=== PATIENT | female | born 2000 | race American Indian/Alaskan Native ===

== ENCOUNTER 2020-07-07 18:14 | Emergency (ER) | payer SELFPAY ==
--- NOTE | 2020-07-07 20:57 | RAD REPORT ---
EXAM DESCRIPTION: RAD - Chest Single View - 07/07/2020 8:10 pm CLINICAL HISTORY: COUGH Chest pain. COMPARISON: No comparisons FINDINGS: Portable technique limits examination quality. The lungs are grossly clear. The heart is normal in size. No displaced fractures. IMPRESSION: No acute intrathoracic process suspected.
--- NOTE | 2020-07-07 21:03 | ER ---
Nurse's Notes [facility] Name: Raegan Fagan Age: 19 yrs Sex: Female : 2000 Arrival Date: 07/07/2020 Time: 18:16 Bed 6 Private MD: Diagnosis: Acute pharyngitis;Acute upper respiratory infection, unspecified Presentation: 07/07 18:19 Chief complaint: Patient states: "sometimes it feels like my heart drops a lot and it ss freaks me out. I don't know if it's my anxiety or what. I get chest pains and it feels like something is in my throat. It's been going on about a year. I'm also sick right now. My nose is stopped up, I'm congested and I keep coughing. I went to [facility] 3-4 months ago and they didn't take me serious so I came here.". Coronavirus screen: Client denies travel out of the [place] in the last 14 days. Ebola Screen: Patient denies exposure to infectious person. Patient denies travel to an Ebola-affected area in the 21 days before illness onset. Initial Sepsis Screen: Does the patient meet any 2 criteria? No. Patient's initial sepsis screen is negative. Does the patient have a suspected source of infection? No. Patient's initial sepsis screen is negative. Risk Assessment: Do you want to hurt yourself or someone else? Patient reports no desire to harm self or others. Onset of symptoms was 2019. 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 - Social history:: Smoking status: Patient reports the use of cigarette tobacco products, smokes one pack cigarettes per day. Screenin:29 Abuse screen: Denies threats or abuse. Nutritional screening: No deficits noted. ll2 Tuberculosis screening: No symptoms or risk factors identified. Fall Risk None identified. Assessment: 19:27 General: Appears in no apparent distress. Behavior is calm, cooperative, appropriate ll2 for age. Pain: Complains of pain in sore throat. Neuro: Level of Consciousness is awake, alert, obeys commands, Oriented to person, place, time, situation. Cardiovascular: Capillary refill < 3 seconds Patient's skin is warm and dry. Respiratory: Airway is patent Respiratory effort is even, unlabored, Respiratory pattern is regular, symmetrical, GI: No signs and/or symptoms were reported involving the gastrointestinal system. : No signs and/or symptoms were reported regarding the genitourinary system. Derm: Skin is intact, is healthy with good turgor, Skin is dry, Skin is pink, warm \\T\\ dry. Skin temperature is warm. Musculoskeletal: Circulation, motion, and sensation intact. Range of motion: intact in all extremities. 19:30 Reassessment: ERP to bedside. ll2 19:30 EENT: Throat. ll2 20:40 Reassessment: Patient and/or family updated on plan of care and expected duration. Pain ll2 level reassessed. Patient is alert, oriented x 3, equal unlabored respirations, skin warm/dry/pink. Vital Signs: 18:19 BP 134 / 89; Pulse 95; Resp 15; Temp 98.4(TE); Pulse Ox 99% on R/A; Weight 56.7 kg; Height 5 ft. 4 in. (162.56 cm); Pain 5/10; 19:31 BP 132 / 101; Pulse 92; Resp 21; Temp 97.9; Pulse Ox 100% ; ll2 20:40 BP 131 / 87; Pulse 107; Resp 16; Pulse Ox 100% on R/A; ll2 18:19 Body Mass Index 21.46 (56.70 kg, 162.56 cm) ED Course: 18:16 Patient arrived in ED. as 18:21 Triage completed. 18:21 Arm band placed on right wrist. 18:49 Michael Gan PA is PHCP. [facility] 18:49 Krishna Alba MD is Attending Physician. [facility] 19:27 Eulalia Moreland RN is Primary Nurse. ll2 19:29 Patient has correct armband on for positive identification. Placed in gown. Bed in low ll2 position. Call light in reach. Side rails up X 1. metal numerical control programmer on. Pulse ox on. NIBP on. 19:30 EKG done, by ED staff. ll2 19:43 COVID-19 Sent. ll2 19:43 Strep Sent. ll2 19:43 Flu Sent. ll2 20:07 Chest Single View XRAY In Process Unspecified. EDMS 21:20 No provider procedures requiring assistance completed. Patient did not have IV access ll2 during this emergency room visit. Administered Medications: 21:19 Drug: Decadron 10 mg Route: IM; Site: right deltoid; ll2 21:19 Follow up: Response: No adverse reaction ll2 Outcome: 21:02 Discharge ordered by . teresita 21:20 Discharged to home ambulatory. ll2 21:20 Condition: stable 21:20 Discharge instructions given to patient, Instructed on discharge instructions, follow up and referral plans. medication usage, Demonstrated understanding of instructions, follow-up care, medications, Prescriptions given X 1. 21:20 Patient left the ED. ll2 Addendum: 07/10/2020 17:42 Addendum: COVID-19 Result: Negative result given to RN to notify pt. Attempted to s v contact pt regarding negative COVID-19 swab results. Unable to leave voice mail due to the number provided was either not a working number, the voice mail has not been set up, or the voice mailbox is full.. 07/12/2020 16:38 Addendum: COVID-19 Result: Negative result given to RN to notify pt. Notified pt of i w negative COVID 19 swab results. Pt advised that even with a negative test result they should remain in isolation until symptom free for 3 days without medication. Pt also advised to return to the ED for worsening symptoms. Signatures: Dispatcher [employer] EDMS Haritha Duffy, RN Michael Bustillo PA PA jmm Martinez, Amelia as Williams, Irene, RN RN iw Smirch, Shelby, RN RN ss Linscombe, Lacie, RN RN ll2
--- NOTE | 2020-07-07 21:03 | EDPHYS ---
Physician Documentation [facility] Name: Raegan Fagan Age: 19 yrs Sex: Female : 2000 Arrival Date: 07/07/2020 Time: 18:16 Bed 6 Private MD: ED Physician Krishna Alba HPI: 07/07 19:22 This 19 yrs old Female presents to ER via Ambulatory with complaints of jmm Runny Nose, Sore Throat, Headache, Chest Pain. 19:22 The patient or guardian reports cough. Onset: The symptoms/episode began/occurred jmm gradually. Modifying factors: The symptoms are alleviated by nothing, the symptoms are aggravated by nothing. The patient has experienced similar episodes in the past. Patient complains of sore throat, cough. 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 - Social history:: Smoking status: Patient reports the use of cigarette tobacco products, smokes one pack cigarettes per day. ROS: 19:22 Constitutional: Negative for fever, chills, and weight loss. jmm 19:22 ENT: Positive for sore throat. 19:22 Cardiovascular: Positive for chest pain, with cough. 19:22 Cardiovascular: Positive for palpitations. 19:22 Neuro: Positive for headache. 19:22 All other systems are negative. Exam: 19:22 Constitutional: This is a well developed, well nourished patient who is awake, alert, jmm and in no acute distress. Head/Face: atraumatic. Eyes: EOMI, no conjunctival erythema appreciated 19:22 Neck: Trachea midline, Supple Chest/axilla: Normal chest wall appearance and motion. Cardiovascular: Regular rate and rhythm. No edema appreciated Respiratory: Normal respirations, no respiratory distress appreciated Abdomen/GI: Non distended, soft Back: Normal ROM Skin: General appearance color normal MS/ Extremity: Moves all extremities, no obvious deformities appreciated, no edema noted to the lower extremities Neuro: Awake and alert, normal gait Psych: Behavior is normal, Mood is normal, Patient is cooperative and pleasant 19:22 ENT: Posterior pharynx: Tonsils: bilaterally enlarged, with erythema, erythema, that is moderate. Vital Signs: 18:19 BP 134 / 89; Pulse 95; Resp 15; Temp 98.4(TE); Pulse Ox 99% on R/A; Weight 56.7 kg; ss Height 5 ft. 4 in. (162.56 cm); Pain 5/10; 19:31 BP 132 / 101; Pulse 92; Resp 21; Temp 97.9; Pulse Ox 100% ; ll2 20:40 BP 131 / 87; Pulse 107; Resp 16; Pulse Ox 100% on R/A; ll2 18:19 Body Mass Index 21.46 (56.70 kg, 162.56 cm) ss MDM: 19:22 Patient medically screened. [facility] 20:32 Data reviewed: vital signs, nurses notes. Counseling: I had a detailed discussion with [facility] the patient and/or guardian regarding: the historical points, exam findings, and any diagnostic results supporting the discharge/admit diagnosis. 21:01 Data reviewed: lab test result(s), radiologic studies, plain films. Counseling: I had a [facility] detailed discussion with the patient and/or guardian regarding: lab results, the need for outpatient follow up, to return to the emergency department if symptoms worsen or persist or if there are any questions or concerns that arise at home. ED course: Patient is alert and non toxic in appearance in the ED. Patient is advised to follow up with pcp and otherwise given strict return precautions. Patient understood and agrees with the plan of care. . 07/07 19:29 Order name: Flu [facility] 07/07 19:29 Order name: Strep [facility] 07/07 19:29 Order name: Chest Single View XRAY; Complete Time: 21:01 [facility] 07/07 19:29 Order name: COVID-19 [facility] Administered Medications: 21:19 Drug: Decadron 10 mg Route: IM; Site: right deltoid; ll2 21:19 Follow up: Response: No adverse reaction ll2 Disposition: 07/08 13:27 Co-signature as Attending Physician, Krishna Alba MD I agree with the assessment and kdr plan of care. Disposition: 07/07/20 21:02 Discharged to Home. Impression: Acute pharyngitis, Acute upper respiratory infection, unspecified. - Condition is Stable. - Discharge Instructions: Pharyngitis, Upper Respiratory Infection, Adult, COVID-19. - Prescriptions for Zithromax Z- Stewart 250 mg Oral Tablet - take 1 tablet by ORAL route as directed for 5 days Day 1 - take two (2) tablets one time. Day 2, 3, 4 , 5 take one (1) tablet once daily.; 6 tablet. - Medication Reconciliation Form, Thank You Letter, Antibiotic Education, Prescription Opioid Use form. - Follow up: Private Physician; When: 2 - 3 days; Reason: Recheck today's complaints, Continuance of care, Re-evaluation by your physician. Signatures: Dispatcher [employer] EDMS Krishna Alba MD MD kdr Mickail, Joel, PA PA jmm Smirch, Shelby, RN RN ss Eulalia Moreland RN RN ll2 Corrections: (The following items were deleted from the chart) 07/07 21:20 21:02 07/07/2020 21:02 Discharged to Home. Impression: Acute pharyngitis; Acute upper ll2 respiratory infection, unspecified. Condition is Stable. Forms are Medication Reconciliation Form, Thank You Letter, Antibiotic Education, Prescription Opioid Use. Follow up: Private Physician; When: 2 - 3 days; Reason: Recheck today's complaints, Continuance of care, Re-evaluation by your physician. teresita
[2020-07-07] MEDS ORDERED: dexAMETHasone 10 MG/ML VIAL ONE (21:27)
[2020-07-07 22:06] VITALS: TEMP 97.9; O2SAT 100
[2020-07-07 22:07] VITALS: BP 131/87
--- NOTE | 2020-07-11 16:12 | EKG ---
Test Date: 2020-07-07 Test Time: 19:25:26 Informatics Manager: HERNANDEZ MEASUREMENT RESULTS: Intervals: Rate: 95 ND: 148 QRSD: 98 QT: 352 QTc: 442 [place]: P: 34 ND: 148 QRS: 74 T: 20 INTERPRETIVE STATEMENTS: Normal sinus rhythm Nonspecific T wave abnormality Abnormal ECG No previous ECG available for comparison Electronically Signed On 07-11-20 16:08:33 CDT by Andrea Davison
== END 2020-07-07 21:20 | disposition home or self-care (01) ==
LOC: ER 18:14
DX: J06.9 Acute upper respiratory infection, unspecified (principal); Z20.828 Contact with and (suspected) exposure to other viral communicable diseases; J02.9 Acute pharyngitis, unspecified; F17.210 Nicotine dependence, cigarettes, uncomplicated
CPT/HCPCS: 71045; 87070; 87081; 87804; 93005; 96372; 99284; J1100; U0002

== ENCOUNTER 2020-08-28 13:21 | Emergency (ER) | payer SELFPAY ==
--- NOTE | 2020-08-28 15:13 | EDPHYS ---
Physician Documentation [facility] Name: Raegan Fagan Age: 19 yrs Sex: Female : 2000 Arrival Date: 08/28/2020 Time: 13:25 Bed 30 Private MD: ED Physician Roderick Haque HPI: 08/28 14:18 This 19 yrs old Female presents to ER via Ambulatory with complaints of kb r/o covid. 14:19 The patient or guardian reports cough. Onset: The symptoms/episode began/occurred 1 kb week(s) ago. Severity of symptoms: At their worst the symptoms were mild, in the emergency department the symptoms are unchanged. Modifying factors: The symptoms are alleviated by nothing, the symptoms are aggravated by nothing. Associated signs and symptoms: The patient has no apparent associated signs or symptoms. The patient has not experienced similar symptoms in the past. The patient has not recently seen a physician. Pt reports headache, intermittent feeling hot and slight cough for a week. States coworker tested positive for COVID. 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 - Social history:: Smoking status: Patient denies any tobacco usage or history of. ROS: 14:18 Cardiovascular: Negative for chest pain, palpitations, and edema, Abdomen/GI: Negative kb for abdominal pain, nausea, vomiting, diarrhea, and constipation, Back: Negative for injury and pain, MS/Extremity: Negative for injury and deformity, Skin: Negative for injury, rash, and discoloration. 14:18 Constitutional: Positive for malaise. 14:18 Respiratory: Positive for cough, Negative for dyspnea on exertion, hemoptysis, orthopnea, pleurisy, shortness of breath, sputum production, wheezing. 14:18 Neuro: Positive for headache. Exam: 14:19 Constitutional: This is a well developed, well nourished patient who is awake, alert, kb and in no acute distress. Head/Face: Normocephalic, atraumatic. Chest/axilla: Normal chest wall appearance and motion. Nontender with no deformity. No lesions are appreciated. Cardiovascular: Regular rate and rhythm with a normal S1 and S2. No gallops, murmurs, or rubs. Normal PMI, no JVD. No pulse deficits. Respiratory: Lungs have equal breath sounds bilaterally, clear to auscultation and percussion. No rales, rhonchi or wheezes noted. No increased work of breathing, no retractions or nasal flaring. Abdomen/GI: Soft, non-tender, with normal bowel sounds. No distension or tympany. No guarding or rebound. No evidence of tenderness throughout. Skin: Warm, dry with normal turgor. Normal color with no rashes, no lesions, and no evidence of cellulitis. MS/ Extremity: Pulses equal, no cyanosis. Neurovascular intact. Full, normal range of motion. Neuro: Awake and alert, GCS 15, oriented to person, place, time, and situation. Cranial nerves II-XII grossly intact. Motor strength 5/5 in all extremities. Sensory grossly intact. Cerebellar exam normal. Normal gait. Vital Signs: 13:30 BP 134 / 87; Pulse 92; Resp 16; Temp 98.6; Pulse Ox 100% on R/A; Weight 56.7 kg; Height iw 5 ft. 4 in. (162.56 cm); 15:13 BP 128 / 85; Pulse 90; Resp 16 S; Pulse Ox 100% on R/A; jd3 13:30 Body Mass Index 21.46 (56.70 kg, 162.56 cm) iw MDM: 13:43 Patient medically screened. kb 14:18 Data reviewed: vital signs, nurses notes. Data interpreted: Pulse oximetry: on room air kb is 100 %. Interpretation: normal. Counseling: I had a detailed discussion with the patient and/or guardian regarding: the historical points, exam findings, and any diagnostic results supporting the discharge/admit diagnosis, lab results, the need for outpatient follow up, a family practitioner, to return to the emergency department if symptoms worsen or persist or if there are any questions or concerns that arise at home. 08/28 13:37 Order name: COVID-19 kb 08/28 13:45 Order name: Flu jd3 08/28 14:48 Order name: Influenza Screen (A ; Complete Time: 15:05 EDMS Administered Medications: No medications were administered Disposition: 17:45 Co-signature as Attending Physician, Roderick Haque MD. rn Disposition: 08/28/20 15:06 Discharged to Home. Impression: Acute upper respiratory infection, unspecified. - Condition is Stable. - Discharge Instructions: Upper Respiratory Infection, Adult, [id number], COVID-19. - Medication Reconciliation Form, Thank You Letter, Antibiotic Education, Prescription Opioid Use form. - Follow up: Emergency Department; When: As needed; Reason: Worsening of condition. Follow up: Private Physician; When: 2 - 3 days; Reason: Recheck today's complaints, Continuance of care, Re-evaluation by your physician. Signatures: Dispatcher [employer] EDMS Tsering Becerra, POULTRY HATCHERY SUPERVISOR-C POULTRY HATCHERY SUPERVISOR-Ckb Zofia Turner, RN Roderick Benson MD MD rn Davies, Jonathon, RN RN jd3 Corrections: (The following items were deleted from the chart) 15:13 15:06 08/28/2020 15:06 Discharged to Home. Impression: Acute upper respiratory jd3 infection, unspecified. Condition is Stable. Forms are Medication Reconciliation Form, Thank You Letter, Antibiotic Education, Prescription Opioid Use. Follow up: Emergency Department; When: As needed; Reason: Worsening of condition. Follow up: Private Physician; When: 2 - 3 days; Reason: Recheck today's complaints, Continuance of care, Re-evaluation by your physician. kb
--- NOTE | 2020-08-28 15:13 | ER ---
Nurse's Notes [facility] Name: Raegan Fagan Age: 19 yrs Sex: Female : 2000 Arrival Date: 08/28/2020 Time: 13:25 Bed 30 Private MD: Diagnosis: Acute upper respiratory infection, unspecified Presentation: 08/28 13:30 Chief complaint: Patient states: was around someone who tested positive for COVID iw almost a week ago, started having a headache and now just wants to get checked. Coronavirus screen: headache. Ebola Screen: Patient negative for fever greater than or equal to 101.5 degrees Fahrenheit, and additional compatible Ebola Virus Disease symptoms Patient denies exposure to infectious person. Patient denies travel to an Ebola-affected area in the 21 days before illness onset. No symptoms or risks identified at this time. Initial Sepsis Screen: Does the patient meet any 2 criteria? No. Patient's initial sepsis screen is negative. Does the patient have a suspected source of infection? No. Patient's initial sepsis screen is negative. Risk Assessment: Do you want to hurt yourself or someone else? Patient reports no desire to harm self or others. Onset of symptoms was August 23, 2020. 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 - Social history:: Smoking status: Patient denies any tobacco usage or history of. Screenin:12 Abuse screen: Denies threats or abuse. Nutritional screening: No deficits noted. jd3 Tuberculosis screening: No symptoms or risk factors identified. Fall Risk Ambulatory Aid- None/Bed Rest/Nurse Assist (0 pts). Gait- Normal/Bed Rest/Wheelchair (0 pts) Mental Status- Oriented to own ability (0 pts). Total Wolfe Fall Scale indicates No Risk (0-24 pts). Assessment: 14:06 General: Appears in no apparent distress. comfortable, Behavior is calm, cooperative. iw Pain: Complains of pain in head. Neuro: Level of Consciousness is awake, alert, obeys commands, Oriented to person, place, time, situation, Moves all extremities. Full function. Respiratory: Reports cough that is. Derm: Skin is intact, is healthy with good turgor. Musculoskeletal: Range of motion: intact in all extremities. 14:11 Reassessment: Patient appears in no apparent distress at this time. No changes from jd3 previously documented assessment. Patient and/or family updated on plan of care and expected duration. Pain level reassessed. Patient is alert, oriented x 3, equal unlabored respirations, skin warm/dry/pink. General: Appears in no apparent distress. comfortable, Behavior is calm, cooperative, appropriate for age. Neuro: Level of Consciousness is awake, alert, obeys commands, Oriented to person, place, time, situation. Respiratory: Reports cough that is persistent Airway is patent Respiratory effort is even, unlabored, Respiratory pattern is regular, symmetrical. 15:12 Reassessment: Patient appears in no apparent distress at this time. No changes from jd3 previously documented assessment. Patient and/or family updated on plan of care and expected duration. Pain level reassessed. Patient is alert, oriented x 3, equal unlabored respirations, skin warm/dry/pink. Vital Signs: 13:30 BP 134 / 87; Pulse 92; Resp 16; Temp 98.6; Pulse Ox 100% on R/A; Weight 56.7 kg; Height iw 5 ft. 4 in. (162.56 cm); 15:13 BP 128 / 85; Pulse 90; Resp 16 S; Pulse Ox 100% on R/A; jd3 13:30 Body Mass Index 21.46 (56.70 kg, 162.56 cm) iw ED Course: 13:25 Patient arrived in ED. as 13:33 Triage completed. iw 13:36 Tsering Becerra FNP-C is PHCP. kb 13:36 Roderick Haque MD is Attending Physician. kb 13:49 Damien Claudio RN is Primary Nurse. jd3 14:11 Arm band placed on. jd3 14:12 Patient has correct armband on for positive identification. Bed in low position. Call jd3 light in reach. Side rails up X 1. Pulse ox on. NIBP on. 14:12 No provider procedures requiring assistance completed. Patient did not have IV access jd3 during this emergency room visit. Administered Medications: No medications were administered Outcome: 15:06 Discharge ordered by MD. ulloa 15:12 Discharged to home ambulatory. jd3 15:12 Condition: stable 15:12 Discharge instructions given to patient, Instructed on discharge instructions, follow up and referral plans. Demonstrated understanding of instructions, follow-up care. 15:13 Patient left the ED. jd3 Addendum: 08/29/2020 17:54 Addendum: COVID-19 Result: Negative result given to RN to notify pt. Notified pt of a a5 negative COVID 19 swab results. Pt advised that even with a negative test result they should remain in isolation until symptom free for 3 days without medication. Pt also advised to return to the ED for worsening symptoms. Signatures: Tsering Becerra, INTERNET DEVELOPER-C INTERNET DEVELOPER-Pam Win Irene, RN RN iw Calderon, Audri, RN RN aa5 Damien Claudio RN RN jd3
[2020-08-31 20:37] VITALS: TEMP 98.6; O2SAT 100
[2020-08-31 20:38] VITALS: BP 128/85
== END 2020-08-28 15:13 | disposition home or self-care (01) ==
LOC: ER 13:21
DX: J06.9 Acute upper respiratory infection, unspecified (principal); Z20.828 Contact with and (suspected) exposure to other viral communicable diseases
CPT/HCPCS: 87804; 99283; U0002

== ENCOUNTER 2021-01-30 21:36 | Emergency (ER) | payer SELFPAY ==
--- NOTE | 2021-01-30 22:25 | ER ---
Nurse's Notes [facility] Name: Raegan Fagan Age: 20 yrs Sex: Female : 2000 Arrival Date: 01/30/2021 Time: 21:39 Bed 6 Private MD: Diagnosis: Presentation: 01/30 21:51 Chief complaint: Patient states: for the last 2 years she feels like their is something bb constantly in her nose and throat, she is concerned about former drug abuse, she states she is not feeling like herself and her symptoms are getting worse. Coronavirus screen: At this time, the client does not indicate any symptoms associated with coronavirus-19. Ebola Screen: No symptoms or risks identified at this time. Initial Sepsis Screen: Does the patient meet any 2 criteria? No. Patient's initial sepsis screen is negative. Does the patient have a suspected source of infection? No. Patient's initial sepsis screen is negative. Risk Assessment: Do you want to hurt yourself or someone else? Patient reports no desire to harm self or others. Onset of symptoms was 2019. 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 - Social history:: Smoking status: Patient/guardian denies using tobacco, Stopped _ months ago 4. Screenin:05 Abuse screen: Denies threats or abuse. Denies injuries from another. Nutritional rr5 screening: No deficits noted. Tuberculosis screening: No symptoms or risk factors identified. Fall Risk None identified. Total Wolfe Fall Scale indicates No Risk (0-24 pts). Assessment: 22:05 General: Appears in no apparent distress. comfortable, Behavior is calm, cooperative, rr5 anxious. 22:05 Pain: Denies pain. Neuro: Level of Consciousness is awake, alert, Oriented to person, rr5 place, time, Reports I feel I am having anxiety attack. Cardiovascular: Capillary refill < 3 seconds Patient's skin is warm and dry. Respiratory: Reports I feel congested Airway is patent Respiratory effort is even, unlabored, Respiratory pattern is regular, symmetrical. 22:10 Reassessment: advised not to drive home for tonight if she will receive the ativan as rr5 verbal order. she said I don't have someone who will drive me home my boyfriend and I have only one car. I stated If she can arrange the transport I can give it to her, she responded with that I will not take it. ED provider aware with order to do ECG. Vital Signs: 21:51 BP 158 / 96; Pulse 155; Resp 16 S; Temp 99(O); Pulse Ox 99% on R/A; Weight 61.23 kg bb (R); Height 5 ft. 4 in. (162.56 cm) (R); Pain 0/10; 22:10 BP 126 / 85; Pulse 144; Resp 19; Pulse Ox 100% ; rr5 21:51 Body Mass Index 23.17 (61.23 kg, 162.56 cm) ED Course: 21:39 Patient arrived in ED. am4 21:53 Triage completed. bb 21:54 Arm band placed on Patient placed in an exam room, on a stretcher. bb 21:59 Barber Rivera, RN is Primary Nurse. rr5 21:59 Michael Gan PA is PHCP. [facility] 21:59 Jay Edwards MD is Attending Physician. [facility] 22:05 Patient has correct armband on for positive identification. rr5 22:05 No provider procedures requiring assistance completed. Patient did not have IV access rr5 during this emergency room visit. Administered Medications: No medications were administered Outcome: 22:20 Eloped after seeing physician rr5 22:20 unknown 22:24 Patient left the ED. ak2 Signatures: Michael Gan PA PA Lamar Avalos RN RN bb Barber Rivera, RN RN rr5 Rosetta Maurer counts include 234 beds at the [facility] Chuckie Valencia ak2 Corrections: (The following items were deleted from the chart) 21:58 21:51 Chief complaint: Patient states: for the last 2 years she feels like their is bb something constantly in her nose and throat, she is concerned about former drug abuse bb
--- NOTE | 2021-01-30 22:25 | EDPHYS ---
Physician Documentation [facility] Name: Raegan Fagan Age: 20 yrs Sex: Female : 2000 Arrival Date: 01/30/2021 Time: 21:39 Bed 6 Private MD: ED Physician Jay Edwards HPI: 01/30 22:11 This 20 yrs old Female presents to ER via Ambulatory with complaints of jmm Nose Problem, Sore Throat, Anxiety. 22:11 Onset: The symptoms/episode began/occurred gradually, 2 year(s) ago. Modifying factors: jmm The symptoms are alleviated by nothing. the symptoms are aggravated by nothing. Associated signs and symptoms: Loss of consciousness: the patient experienced. This is a 20 year old female with no chronic medical conditions that presents to the ED with complaints of 2 years of sinus congestion. Patient states she looked it up on google and became anxious. Patient has an appointment with her pcp tomorrow for evaluation. Denies fever, bleeding . 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 - Social history:: Smoking status: Patient/guardian denies using tobacco, Stopped _ months ago 4. ROS: 22:11 Constitutional: Negative for fever, chills, and weight loss, Cardiovascular: Negative jmm for chest pain, palpitations, and edema, Respiratory: Negative for shortness of breath, cough, wheezing, and pleuritic chest pain. 22:11 ENT: Positive for sinus congestion. 22:11 All other systems are negative. Exam: 22:11 Constitutional: This is a well developed, well nourished patient who is awake, alert, jmm and in no acute distress. 22:11 Eyes: EOMI, no conjunctival erythema appreciated ENT: Moist Mucus Membranes Neck: Trachea midline, Supple Chest/axilla: Normal chest wall appearance and motion. Cardiovascular: Regular rate and rhythm. No edema appreciated Respiratory: Normal respirations, no respiratory distress appreciated Abdomen/GI: Non distended, soft Back: Normal ROM Skin: General appearance color normal MS/ Extremity: Moves all extremities, no obvious deformities appreciated, no edema noted to the lower extremities Neuro: Awake and alert, normal gait Psych: Behavior is normal, Mood is normal, Patient is cooperative and pleasant 22:11 Head/face: Noted is tenderness, that is mild, of the forehead and nose. Vital Signs: 21:51 BP 158 / 96; Pulse 155; Resp 16 S; Temp 99(O); Pulse Ox 99% on R/A; Weight 61.23 kg bb (R); Height 5 ft. 4 in. (162.56 cm) (R); Pain 0/10; 22:10 BP 126 / 85; Pulse 144; Resp 19; Pulse Ox 100% ; rr5 21:51 Body Mass Index 23.17 (61.23 kg, 162.56 cm) bb MDM: 22:14 Data reviewed: vital signs, nurses notes. teresita 22:26 ED course: Patient left the ED upset. HR is tachycardic. Patient appears very anxious. teresita I attempted to administered ativan. Nursing refused due to no ride. I discussed this with the patient whom eloped from the ED against medical advice. . 22:27 Patient medically screened. teresita Administered Medications: No medications were administered Disposition: 01/30/21 22:24 Patient left the facility after being seen by provider. - Patient left due to unknown. Addendum: 02/13/2021 05:08 Co-signature as Attending Physician, Jay Edwards MD I agree with the assessment and t w4 plan of care. Signatures: Michael Gan PA PA jmm Ballard, Brenda, RN RN Jay Shoemaker MD MD tw4 Chuckie Valencia ca2
[2021-01-30 22:32] VITALS: BP 158/96; TEMP 99; O2SAT 99
[2021-01-30] MEDS ORDERED: LORAZEPAM 1 MG TABLET ONE (22:33)
== END 2021-01-30 22:24 | disposition left against medical advice (07) ==
LOC: ER 21:36
DX: R09.81 Nasal congestion (principal); F41.9 Anxiety disorder, unspecified
CPT/HCPCS: 99281